=== PATIENT | male | born 1975 | race American Indian/Alaskan Native ===

== ENCOUNTER 2021-08-15 14:45 | Emergency (ER) | payer SELFPAY ==
[2021-08-15 17:41] VITALS: BP 143/83
[2021-08-15] MEDS ORDERED: dexAMETHasone 20 MG/5 ML VIAL IM ONE (22:43)
[2021-08-15] MEDS ORDERED: KETOROLAC 30 MG/1 ML INJ IM ONE (22:43)
--- NOTE | 2021-08-15 23:12 | Emergency Department Report ---
ED General Adult HPI - General Chief complaint: Back Pain/Injury Stated complaint: BACK PAIN/LT LEG NUMBNESS Time Seen by Provider: 08/15/21 22:41 Source: patient Mode of arrival: Ambulatory Limitations: No Limitations - History of Present Illness Initial comments: Patient 46-year-old obese male with a history of chronic back pain who presents for low back pain x3 days. Patient states he does have a [facility] doctor however he could not get into see the doctor today. Back pain is described at 5/10 achiness radiating to right lower extremity. Patient denies new fall injury or trauma. There is no loss or decrease in bowel or bladder function. Patient is amatory with steady gait per patient. Patient is tolerating p.o. intake without symptoms. Patient declines x-rays. Vies he will follow-up with [facility] doctor tomorrow. His primary concern is pain. - Related Data Previous Rx's Medication Instructions Recorded Last Taken Type Acetaminophen [Tylenol Extra 1,000 mg PO Q6H PRN #30 tab 08/15/21 Unknown Rx Strength] Cyclobenzaprine [Flexeril] 10 mg PO TID PRN #30 08/15/21 Unknown Rx Methyl Salicylate/Menth/Camph 1 each TP BID PRN #20 patch 08/15/21 Unknown Rx [Salonpas 3.1%-6.0%-10.0% Patch] Allergies Allergy/AdvReac Type Severity Reaction Status Date / Time No Known Allergies Allergy Verified 08/15/21 17:38 ED Review of Systems ROS: Stated complaint: BACK PAIN/LT LEG NUMBNESS Other details as noted in HPI Constitutional: denies: chills, fever Eyes: denies: eye pain, eye discharge, vision change ENT: denies: ear pain, throat pain Respiratory: denies: cough, shortness of breath, wheezing Cardiovascular: denies: chest pain, palpitations Endocrine: no symptoms reported Gastrointestinal: denies: abdominal pain, nausea, diarrhea Genitourinary: denies: urgency, dysuria Musculoskeletal: back pain, arthralgia Skin: denies: rash, lesions Neurological: denies: headache, weakness, paresthesias Psychiatric: denies: anxiety, depression Hematological/Lymphatic: denies: easy bleeding, easy bruising ED Past Medical Hx - Medications Home Medications: Home Medications Medication Instructions Recorded Confirmed Last Taken Type Acetaminophen [Tylenol Extra 1,000 mg PO Q6H PRN #30 tab 08/15/21 Unknown Rx Strength] Cyclobenzaprine [Flexeril] 10 mg PO TID PRN #30 08/15/21 Unknown Rx Methyl Salicylate/Menth/Camph 1 each TP BID PRN #20 patch 08/15/21 Unknown Rx [Salonpas 3.1%-6.0%-10.0% Patch] ED Physical Exam - General Limitations: No Limitations General appearance: alert, in no apparent distress - Head Head exam: Present: atraumatic, normocephalic - Eye Eye exam: Present: normal appearance, EOMI Pupils: Present: normal accommodation - ENT ENT exam: Present: mucous membranes moist - Neck Neck exam: Present: normal inspection. Absent: tenderness, meningismus, lymphadenopathy, thyromegaly - Respiratory Respiratory exam: Present: normal lung sounds bilaterally. Absent: respiratory distress, wheezes, stridor - Cardiovascular Cardiovascular Exam: Present: regular rate, normal rhythm, normal heart sounds. Absent: systolic murmur, diastolic murmur, rubs, gallop - GI/Abdominal GI/Abdominal exam: Present: soft, normal bowel sounds. Absent: distended, tenderness - Rectal Rectal exam: Present: deferred - Extremities Exam Extremities exam: Present: normal inspection, full ROM, normal capillary refill. Absent: tenderness - Back Exam Back exam: Present: normal inspection, full ROM, muscle spasm, paraspinal tenderness. Absent: vertebral tenderness - Expanded Back Exam Expanded Back exam: Absent: saddle anesthesia Back exam: Positive Straight Leg Raise: Right - Neurological Exam Neurological exam: Present: alert, oriented X3, CN II-XII intact, normal gait, reflexes normal. Absent: motor sensory deficit - Expanded Neurological Exam Expanded Patient oriented to: Present: person, place, time Speech: Present: fluid speech Motor strength exam: RUE: 5, LUE: 5, RLE: 5, LLE: 5 DTR: ankle (R): 1+, ankle (L): 1+ Best Eye Response (Bro): (4) open spontaneously Best Motor Response ([place]): (6) obeys commands Best Verbal Response (Bro): (5) oriented Bro Total: 15 - Psychiatric Psychiatric exam: Present: normal affect, normal mood - Skin Skin exam: Present: warm, dry, intact, normal color. Absent: rash ED Course Vital Signs 08/15/21 17:39 Temperature 98.6 F Pulse Rate 75 Respiratory 16 Rate Blood Pressure 143/83 [Left] O2 Sat by Pulse 98 Oximetry ED Medical Decision Making - Medical Decision Making There is no posterior vertebral point tenderness. Range of motion is intact and unrestricted to all quadrants. There is positive straight leg right. However patient is amatory with steady gait. There is been no loss or decrease in bowel or bladder function. Plan NSAIDs, muscle relaxants, follow-up with primary care doctor in 2 to 3 days. Return to emergency department should symptoms worsen. Patient verbalized agreement and understanding with discharge plan. Tomas bell DC'd home in stable condition at this time. Critical care attestation.: If time is entered above; I have spent that time in minutes in the direct care of this critically ill patient, excluding procedure time. ED Disposition Clinical Impression: Low back strain Qualifiers: Encounter type: initial encounter Qualified Code(s): S39.012A - Strain of muscle, fascia and tendon of lower back, initial encounter Disposition: HOME / SELF CARE / HOMELESS Is pt being admited?: No Does the pt Need Aspirin: No Condition: Stable Instructions: Low Back Sprain or Strain Rehab-SportsMed Additional Instructions: Take medications as prescribed, follow-up with your doctor in 2 to 3 days. Return to emergency department should symptoms worsen. Prescriptions: Cyclobenzaprine [Flexeril] 10 mg PO TID PRN #30 PRN Reason: Muscle Spasm Methyl Salicylate/Menth/Camph [Salonpas 3.1%-6.0%-10.0% Patch] 1 each TP BID PRN #20 patch PRN Reason: pain Acetaminophen [Tylenol Extra Strength] 1,000 mg PO Q6H PRN #30 tab PRN Reason: pain Referrals: PRIMARY CARE,MD [Primary Care Provider] - 3-5 Days (Follow-up with your [facility] doctor in 2 to 3 days as scheduled.) Forms: Work/School Release Form(ED) Time of Disposition: 23:12
== END 2021-08-15 23:50 | disposition home or self-care (01) ==
LOC: ED 14:45
DX: S39.012A Strain of muscle, fascia and tendon of lower back, initial encounter (principal); X58.XXXA Exposure to other specified factors, initial encounter; Y93.89 Activity, other specified; Y92.89 Other specified places as the place of occurrence of the external cause; Y99.8 Other external cause status
CPT/HCPCS: 96372; 99282; J1100; J1885